=== PATIENT | male | born 1995 | race Two or more races ===

== ENCOUNTER 2019-01-07 04:42 | Emergency (ER) | payer OTHER ==
[~2019-01-07] VITALS: Ht 185.4 cm; Wt 121.6 kg
[2019-01-07] MEDS ORDERED: [UNRECOGNIZED DRUG - OTHER] PO (04:52)
[2019-01-07] MEDS ORDERED: PROMETHAZINE HC25 M1 PO (06:48)
== END 2019-01-07 07:28 | disposition home or self-care (01) ==
LOC: ED 04:42
DX: R10.13 Epigastric pain (principal); R05 Cough; E87.1 Hypo-osmolality and hyponatremia; Z79.899 Other long term (current) drug therapy
CPT/HCPCS: 71046; 80053; 83690; 85025; 96361; 96374; 96375; 99284-25; J1885; J2405; J7030

== ENCOUNTER 2019-07-19 20:58 | Emergency (ER) | payer SELFPAY ==
[~2019-07-19] VITALS: Ht 185.4 cm; Wt 121.6 kg
[~2019-07-19 20:58] MED LIST: PROMETHAZINE HC25 M1 PO; [UNRECOGNIZED DRUG - OTHER] PO
[2019-07-20] MEDS ORDERED: METFORMIN HCL500 MG PO (02:43)
== END 2019-07-20 03:05 | disposition home or self-care (01) ==
LOC: ED 20:58
DX: K52.9 Noninfective gastroenteritis and colitis, unspecified (principal); E11.9 Type 2 diabetes mellitus without complications; Z87.891 Personal history of nicotine dependence; Z79.899 Other long term (current) drug therapy
CPT/HCPCS: 80053; 81001; 82010; 83036; 83690; 85025; 87088; 96361; 96374; 99284-25; J2405; J7030

== ENCOUNTER 2019-09-01 17:15 | Emergency (ER) | payer SELFPAY ==
[~2019-09-01] VITALS: Ht 185.4 cm; Wt 121.6 kg
[~2019-09-01 17:15] MED LIST changes: +METFORMIN HCL500 MG PO
[2019-09-01] MEDS ORDERED: ATORVASTATIN CA40 MG PO (17:27)
[2019-09-01] MEDS ORDERED: LISINOPRIL10 MG PO (17:27)
[2019-09-01] MEDS ORDERED: NORCO 7.5-3251 EACH PO (17:43)
== END 2019-09-01 18:00 | disposition home or self-care (01) ==
LOC: ED 17:15
DX: S05.02XA Injury of conjunctiva and corneal abrasion without foreign body, left eye, initial encounter (principal); X58.XXXA Exposure to other specified factors, initial encounter; Z79.899 Other long term (current) drug therapy
CPT/HCPCS: 99283; A9270

== ENCOUNTER 2025-04-21 08:00 | Emergency (ER) | payer OTHER ==
[~2025-04-21] VITALS: Ht 185.4 cm; Wt 110.2 kg
[~2025-04-21 08:00] MED LIST changes: +ATORVASTATIN CA40 MG PO; +CEFDINIR300 MG PO; +LISINOPRIL10 MG PO; +NORCO 7.5-3251 EACH PO
[2025-04-21] MEDS ORDERED: LISINOPRIL5 MG PO (08:16)
[2025-04-21] MEDS ORDERED: ATORVASTATIN CA20 MG PO (08:16)
[2025-04-21] MEDS ORDERED: FREESTYLE LITE1 EAC1 MISC (08:16)
[2025-04-21] MEDS ORDERED: GLIPIZIDE ER5 MG PO (08:16)
[2025-04-21] MEDS ORDERED: FENOFIBRATE160 MG PO (08:16)
[2025-04-21] MEDS ORDERED: FREESTYLE LANC1 EACH MISC (08:16)
[2025-04-21 08:29] LABS: BASOPHILS 0.8 % (0.2-1.2); EOSINOPHILS 2.4 % (0.8-7.0); HEMATOCRIT 44.6 % (40.1-51.0); HEMOGLOBIN 15.2 g/dL (13.7-17.5); LYMPHOCYTES 37.1 % (21.8-53.1); MCHC 34.1 g/dL (32.3-36.5); MCV 79.1 fL (79.0-92.2); MONOCYTES 6.4 % (5.3-12.2); NEUTROPHILS 53.2 % (34.0-67.9); PLATELET COUNT 220 K/uL (163-337); RBC 5.64 M/uL (4.63-6.08)
[2025-04-21 08:43] LABS: ALBUMIN 4.1 g/dL (3.4-5.0); ALBUMIN/GLOBULIN RATIO 0.89 (1.1-2.4); BILIRUBIN, TOTAL 0.4 mg/dL (0.2-1.0); BUN/CREATININE RATIO 25.84 (6.0-28.6); CALCIUM 9.2 mg/dL (8.5-10.1); CREATININE, SERUM 0.89 mg/dL (0.70-1.30); PROTEIN, TOTAL 8.7 g/dL (6.4-8.2)
[2025-04-21 08:56] LABS: BILIRUBIN, URINE NEGATIVE (negative); BLOOD/HGB, URINE NEGATIVE (Negative); KETONE, URINE NEGATIVE (Negative); LEUK ESTERASE, URINE NEGATIVE (negative); NITRITE, URINE NEGATIVE (negative)
[2025-04-21 09:06] VITALS: BP 120/79
== END 2025-04-21 09:06 | disposition home or self-care (01) ==
LOC: ED 08:00
PROVIDERS: Emergency Medicine
DX: E11.40 Type 2 diabetes mellitus with diabetic neuropathy, unspecified (principal); Z79.84 Long term (current) use of oral hypoglycemic drugs
CPT/HCPCS: 36415; 80053; 81003; 85025; 99284